=== PATIENT | female | born 1930 | race Hispanic/Latino ===

== ENCOUNTER → 2017-09-24 | Outpatient (CLI) | payer OTHER ==
[~2017-09-24] MED LIST: AEC81 PO; ALBU2.5V2 IH; APIX5TAB PO; ATOR10TA69 PO; FENT50PAT TD; GLIP1TAB6 PO; INSLAN SQ; IPRNEB IH; METO-408 PO; METO25TA6 PO; ONDA8TAB5 PO; PANT20TA PO; PRAV20TA4 PO; PRED20TA3 PO; RIVA15TA PO; SERT100T PO; SITA100T12 PO; TYL3 PO; VALS1TAB75 PO; VALS40TA10 PO
== END | disposition home or self-care (01) ==
LOC: SHCH 13:07
PROVIDERS: ATTEND Internal Medicine Cardiovascular Disease
DX: I73.9 Peripheral vascular disease, unspecified (principal)
CPT/HCPCS: 93925

== ENCOUNTER 2017-09-30 10:20 | Inpatient (IN) | payer OTHER ==
[~2017-09-30] VITALS: Ht 142.2 cm; Wt 55.3 kg
[~2017-09-30 10:20] MED LIST changes: -FENT50PAT TD; -METO-408 PO; -ONDA8TAB5 PO; -PANT20TA PO; -PRAV20TA4 PO; -PRED20TA3 PO; -RIVA15TA PO; -SERT100T PO; -TYL3 PO; -VALS40TA10 PO
[2017-09-30] MEDS ORDERED: FENTANYL 50 MCG/HR PATCH TD ONE (11:20)
[2017-09-30] MEDS ORDERED: ACETAMINOPHEN-CODEINE 300/30MG TAB ONE (11:20)
[2017-09-30 11:35] LABS: BASOPHILS % (AUTO) 0.5 % (0.0-5.0); EOSINOPHILS % (AUTO) 1.2 % (0.0-8.0); HEMATOCRIT 24.6 % (36-48); LYMPHOCYTES % (AUTO) 19.2 % (21.0-51.0); MEAN CORPUSCULAR HEMOGLOBIN 23.6 pg (27.0-33.0); MEAN CORPUSCULAR HGB CONC 32.7 g/dL (32.0-36.0); MEAN CORPUSCULAR VOLUME 72.1 fL (79-99); MONOCYTES % (AUTO) 13.4 % (3.0-13.0); NEUTROPHILS % (AUTO) 65.7 % (40.0-77.0); PLATELET COUNT (AUTO) 247 K/uL (130-400); RED BLOOD CELL COUNT(AUTO) 3.42 MIL/uL (4.00-5.50); RED CELL DISTRIBUTION WIDTH 24.3 % (11.0-15.5); WHITE BLOOD COUNT (AUTO) 5.5 K/uL (4.8-10.8)
[2017-09-30 11:44] LABS: CREATININE 0.8 mg/dL (0.5-1.5); POTASSIUM 4.6 mmol/L (3.5-5.1)
[2017-09-30 11:49] LABS: ALBUMIN 3.2 g/dL (3.5-5.0); BILIRUBIN,DIRECT 0.1 mg/dL (0.0-0.3); BILIRUBIN,TOTAL 0.2 mg/dL (0.2-1.0); TOTAL PROTEIN, SERUM 5.7 g/dL (6.0-8.3)
[2017-09-30] MEDS: FENTANYL 50 MCG/HR PATCH TD SCH (12:15)
[2017-09-30 12:31] VITALS: BP 104/50
[2017-09-30] MEDS ORDERED: IPRATROPIUM/ALBUTEROL SULFATE 3 ML SOLUTION IH ONE (13:45)
[2017-09-30] MEDS ORDERED: IPRATROPIUM/ALBUTEROL SULFATE 3 ML SOLUTION IH SCH (14:00)
[2017-09-30] MEDS ORDERED: GLIPIZIDE 5 MG TABLET PO SCH (17:14)
[2017-09-30] MEDS: METFORMIN HCL 500 MG TABLET PO SCH (17:20)
[2017-09-30] MEDS: IPRATROPIUM/ALBUTEROL SULFATE 3 ML SOLUTION IH SCH ×2 (18:00→21:27)
[2017-09-30] MEDS ORDERED: ALBUTEROL SULFATE 0.083% 2.5 MG/3 ML INH IH SCH (18:00)
[2017-09-30 21:25] VITALS: BP 123/65
[2017-09-30] MEDS: 1/2 NORMAL SALINE 1,000 ML IV SCH (23:00)
[2017-09-30 23:40] VITALS: BP 93/60
[2017-10-01] MEDS ORDERED: FENT50PAT TD (01:01)
[2017-10-01] MEDS ORDERED: METO-408 PO (01:01)
[2017-10-01] MEDS ORDERED: SERT100T PO (01:01)
[2017-10-01] MEDS ORDERED: ONDA8TAB5 PO (01:01)
[2017-10-01] MEDS ORDERED: PANT20TA PO (01:01)
[2017-10-01] MEDS ORDERED: RIVA15TA PO (01:01)
[2017-10-01] MEDS ORDERED: VALS40TA10 PO (01:01)
[2017-10-01] MEDS ORDERED: PRED20TA3 PO (01:01)
[2017-10-01] MEDS ORDERED: TYL3 PO (01:01)
[2017-10-01] MEDS ORDERED: PRAV20TA4 PO (01:01)
[2017-10-01 04:18] VITALS: BP 107/65
[2017-10-01 04:37] LABS: HEMATOCRIT 25.4 % (36-48); MEAN CORPUSCULAR HGB CONC 31.5 g/dL (32.0-36.0); MEAN CORPUSCULAR VOLUME 73.3 fL (79-99); NUCLEATED RED BLOOD CELLS 0.1 % (0.0-0.19); PLATELET COUNT (AUTO) 284 K/uL (130-400); RED BLOOD CELL COUNT(AUTO) 3.47 MIL/uL (4.00-5.50); RED CELL DISTRIBUTION WIDTH 24.8 % (11.0-15.5)
[2017-10-01 04:54] LABS: CREATININE 0.9 mg/dL (0.5-1.5); POTASSIUM 5.4 mmol/L (3.5-5.1)
[2017-10-01] MEDS: 1/2 NORMAL SALINE 1,000 ML IV SCH ×2 (06:22→19:00)
[2017-10-01 07:00] VITALS: BP 112/62
[2017-10-01] MEDS: IPRATROPIUM/ALBUTEROL SULFATE 3 ML SOLUTION IH SCH ×2 (07:17→22:08)
[2017-10-01] MEDS ORDERED: METFORMIN HCL 500 MG TABLET PO SCH ×2 (07:30→08:00)
[2017-10-01] MEDS ORDERED: PHARMACY COMMUNICATION MISC SCH (07:30)
[2017-10-01] MEDS ORDERED: GLUCAGON 1MG KIT 1 MG ML IM PRN (08:15)
[2017-10-01] MEDS ORDERED: DEXTROSE 50%-WATER 50 ML DISP.SYRIN IV PRN (08:15)
[2017-10-01] MEDS: VALSARTAN 40 MG PO SCH (09:00)
[2017-10-01] MEDS: METOPROLOL SUCCINATE 25 MG PO SCH (09:00)
[2017-10-01] MEDS: RIVAROXABAN 15 MG TABLET PO SCH (09:47)
[2017-10-01] MEDS: SERTRALINE HCL 50 MG TABLET PO SCH (09:47)
[2017-10-01] MEDS: PANTOPRAZOLE SODIUM 40 MG TABLET.DR PO SCH (09:47)
[2017-10-01] MEDS: ONDANSETRON 4 MG TABLET PO SCH (09:48)
[2017-10-01] MEDS: PREDNISONE 20 MG TABLET PO SCH (09:48)
[2017-10-01] MEDS: GLIPIZIDE 5 MG TABLET PO SCH ×2 (09:48→18:57)
[2017-10-01 11:00] VITALS: BP 107/55
[2017-10-01] MEDS ORDERED: INSULIN LISPRO 100 UNIT/ML 3ML SQ ONE (13:27)
[2017-10-01] MEDS: HUMALOG PO SS1/2 SQ SCH ×2 (13:37→21:17)
[2017-10-01 17:27] VITALS: BP 114/62
[2017-10-01] MEDS: METFORMIN HCL 500 MG TABLET PO SCH (18:57)
[2017-10-01 19:00] VITALS: BP 102/76
[2017-10-01] MEDS: ATORVASTATIN CALCIUM 10 MG TABLET PO SCH (21:07)
[2017-10-01 23:00] VITALS: BP 116/44
[2017-10-02 03:00] VITALS: BP 109/64
[2017-10-02] MEDS: HUMALOG PO SS1/2 SQ SCH ×4 (06:47→22:50)
[2017-10-02 07:00] VITALS: BP 131/60
[2017-10-02] MEDS ORDERED: IOPAMIDOL-370 100 ML VIAL IV ONE (08:24)
[2017-10-02] MEDS ORDERED: ISOVUE-370 50ML VIAL IV ONE (08:25)
[2017-10-02] MEDS: METOPROLOL SUCCINATE 25 MG PO SCH (09:00)
[2017-10-02] MEDS: VALSARTAN 40 MG PO SCH (09:00)
[2017-10-02] MEDS: IPRATROPIUM/ALBUTEROL SULFATE 3 ML SOLUTION IH SCH ×2 (09:08→18:50)
[2017-10-02 11:00] VITALS: BP 93/61
[2017-10-02] MEDS: ONDANSETRON 4 MG TABLET PO SCH (12:13)
[2017-10-02] MEDS: GLIPIZIDE 5 MG TABLET PO SCH ×2 (12:13→17:06)
[2017-10-02] MEDS: SERTRALINE HCL 50 MG TABLET PO SCH (12:13)
[2017-10-02] MEDS: RIVAROXABAN 15 MG TABLET PO SCH (12:13)
[2017-10-02] MEDS: PREDNISONE 20 MG TABLET PO SCH (12:14)
[2017-10-02] MEDS: PANTOPRAZOLE SODIUM 40 MG TABLET.DR PO SCH (12:14)
[2017-10-02] MEDS: ACETAMINOPHEN-CODEINE 300/30MG TAB PO PRN (12:15)
[2017-10-02] MEDS: 1/2 NORMAL SALINE 1,000 ML IV SCH (12:35)
[2017-10-02 16:00] VITALS: BP 100/58
[2017-10-02 19:00] VITALS: BP 100/55
[2017-10-02] MEDS: ATORVASTATIN CALCIUM 10 MG TABLET PO SCH (22:42)
[2017-10-02 23:00] VITALS: BP 107/67
[2017-10-03 03:00] VITALS: BP 129/73
[2017-10-03 04:37] LABS: INR 1.02 (0.85-1.15); PROTHROMBIN TIME 10.7 SEC (9.6-11.6)
[2017-10-03] MEDS: HUMALOG PO SS1/2 SQ SCH ×4 (06:32→21:19)
[2017-10-03] MEDS: IPRATROPIUM/ALBUTEROL SULFATE 3 ML SOLUTION IH SCH ×2 (06:37→19:29)
[2017-10-03 07:00] VITALS: BP 114/52
[2017-10-03] MEDS: GLIPIZIDE 5 MG TABLET PO SCH ×2 (08:00→16:46)
[2017-10-03] MEDS ORDERED: METFORMIN HCL 500 MG TAB.SR.24H PO SCH (08:00)
[2017-10-03] MEDS: METOPROLOL SUCCINATE 25 MG PO SCH (09:00)
[2017-10-03] MEDS: RIVAROXABAN 15 MG TABLET PO SCH (09:00)
[2017-10-03] MEDS: VALSARTAN 40 MG PO SCH (09:00)
[2017-10-03 11:00] VITALS: BP 106/59
[2017-10-03] MEDS: PREDNISONE 20 MG TABLET PO SCH (11:53)
[2017-10-03] MEDS: ONDANSETRON 4 MG TABLET PO SCH (11:53)
[2017-10-03] MEDS: SERTRALINE HCL 50 MG TABLET PO SCH (11:53)
[2017-10-03] MEDS: PANTOPRAZOLE SODIUM 40 MG TABLET.DR PO SCH (11:54)
[2017-10-03] MEDS: FENTANYL 50 MCG/HR PATCH TD SCH (12:31)
[2017-10-03 16:00] VITALS: BP 125/69
[2017-10-03] MEDS: METFORMIN HCL 500 MG TABLET PO SCH (16:47)
[2017-10-03] MEDS: ACETAMINOPHEN-CODEINE 300/30MG TAB PO PRN ×2 (16:51→23:50)
[2017-10-03] MEDS ORDERED: PHARMACY COMMUNICATION MISC SCH (19:00)
[2017-10-03 20:00] VITALS: BP 97/54
[2017-10-03] MEDS: ATORVASTATIN CALCIUM 10 MG TABLET PO SCH (21:15)
[2017-10-03] MEDS ORDERED: SODIUM CHLORIDE 0.9% 250 ML IV ONE (22:12)
[2017-10-03 22:33] LABS: HEMATOCRIT 25.2 % (36-48)
[2017-10-03] MEDS: 1/2 NORMAL SALINE 1,000 ML IV SCH (23:13)
[2017-10-03 23:25] VITALS: BP 96/44
[2017-10-04 03:41] VITALS: BP 154/76
[2017-10-04 04:21] LABS: HEMATOCRIT 26.9 % (36-48)
[2017-10-04] MEDS: ALBUTEROL SULFATE 0.083% 2.5 MG/3 ML INH IH PRN (06:24)
[2017-10-04] MEDS: 1/2 NORMAL SALINE 1,000 ML IV SCH ×2 (06:33→20:51)
[2017-10-04] MEDS: HUMALOG PO SS1/2 SQ SCH ×4 (06:34→20:58)
[2017-10-04] MEDS: ACETAMINOPHEN-CODEINE 300/30MG TAB PO PRN ×2 (06:40→20:51)
[2017-10-04 07:00] VITALS: BP 127/80
[2017-10-04] MEDS: ONDANSETRON 4 MG TABLET PO SCH (09:00)
[2017-10-04] MEDS ORDERED: RIVAROXABAN 15 MG TABLET PO SCH (09:00)
[2017-10-04] MEDS: IPRATROPIUM/ALBUTEROL SULFATE 3 ML SOLUTION IH SCH ×2 (09:00→17:26)
[2017-10-04] MEDS: PREDNISONE 20 MG TABLET PO SCH (09:15)
[2017-10-04] MEDS: PANTOPRAZOLE SODIUM 40 MG TABLET.DR PO SCH (09:15)
[2017-10-04] MEDS: GLIPIZIDE 5 MG TABLET PO SCH ×2 (09:17→16:34)
[2017-10-04] MEDS: SERTRALINE HCL 50 MG TABLET PO SCH (09:17)
[2017-10-04] MEDS: VALSARTAN 40 MG PO SCH (09:21)
[2017-10-04] MEDS: METOPROLOL SUCCINATE 25 MG PO SCH (09:21)
[2017-10-04 11:00] VITALS: BP 125/57
[2017-10-04 16:00] VITALS: BP 116/78
[2017-10-04 19:40] VITALS: BP 119/71
[2017-10-04] MEDS: ATORVASTATIN CALCIUM 10 MG TABLET PO SCH (20:51)
[2017-10-04 23:10] VITALS: BP_SYST 106; BP_SYST 140; BP_DIAS 59; BP_DIAS 74
[2017-10-05 04:03] VITALS: BP 114/61
[2017-10-05] MEDS: HUMALOG PO SS1/2 SQ SCH ×4 (06:19→20:30)
[2017-10-05] MEDS: IPRATROPIUM/ALBUTEROL SULFATE 3 ML SOLUTION IH SCH ×2 (06:43→19:43)
[2017-10-05 07:00] VITALS: BP 135/66
[2017-10-05] MEDS: ACETAMINOPHEN-CODEINE 300/30MG TAB PO PRN ×2 (07:51→18:35)
[2017-10-05] MEDS: PREDNISONE 20 MG TABLET PO SCH (09:31)
[2017-10-05] MEDS: SERTRALINE HCL 50 MG TABLET PO SCH (09:31)
[2017-10-05] MEDS: PANTOPRAZOLE SODIUM 40 MG TABLET.DR PO SCH (09:31)
[2017-10-05] MEDS: ONDANSETRON 4 MG TABLET PO SCH (09:31)
[2017-10-05] MEDS: GLIPIZIDE 5 MG TABLET PO SCH ×2 (09:31→16:42)
[2017-10-05] MEDS: VALSARTAN 40 MG PO SCH (09:59)
[2017-10-05] MEDS: METOPROLOL SUCCINATE 25 MG PO SCH (09:59)
[2017-10-05 11:13] VITALS: BP 125/85
[2017-10-05 17:02] VITALS: BP 107/58
[2017-10-05 19:19] VITALS: BP 122/76
[2017-10-05] MEDS: ATORVASTATIN CALCIUM 10 MG TABLET PO SCH (20:23)
[2017-10-05] MEDS: 1/2 NORMAL SALINE 1,000 ML IV SCH (20:30)
[2017-10-05 23:18] VITALS: BP 123/65
[2017-10-06 03:41] VITALS: BP 119/85
[2017-10-06] MEDS: HUMALOG PO SS1/2 SQ SCH ×4 (06:28→20:44)
[2017-10-06] MEDS: IPRATROPIUM/ALBUTEROL SULFATE 3 ML SOLUTION IH SCH ×2 (07:30→19:08)
[2017-10-06] MEDS ORDERED: SODIUM CHLORIDE 0.9% 500ML 500 ML IV SCH (08:26)
[2017-10-06] MEDS: ONDANSETRON 4 MG TABLET PO SCH (08:46)
[2017-10-06] MEDS: PANTOPRAZOLE SODIUM 40 MG TABLET.DR PO SCH (08:46)
[2017-10-06] MEDS: PREDNISONE 20 MG TABLET PO SCH (08:46)
[2017-10-06] MEDS: GLIPIZIDE 5 MG TABLET PO SCH ×2 (08:46→16:31)
[2017-10-06 08:47] LABS: CREATININE 0.7 mg/dL (0.5-1.5)
[2017-10-06] MEDS: SERTRALINE HCL 50 MG TABLET PO SCH (08:47)
[2017-10-06] MEDS: ACETAMINOPHEN-CODEINE 300/30MG TAB PO PRN ×2 (08:47→21:44)
[2017-10-06] MEDS: METOPROLOL SUCCINATE 25 MG PO SCH (08:47)
[2017-10-06] MEDS: VALSARTAN 40 MG PO SCH (08:47)
[2017-10-06 08:48] LABS: INR 1.02 (0.85-1.15); PARTIAL THROMBOPLASTIN TIME 24.9 SEC (26.3-35.5); PROTHROMBIN TIME 10.7 SEC (9.6-11.6)
[2017-10-06 08:54] VITALS: BP 149/73
[2017-10-06 11:00] VITALS: BP 100/59
[2017-10-06] MEDS: FENTANYL 50 MCG/HR PATCH TD SCH (11:55)
[2017-10-06 16:00] VITALS: BP 95/56
[2017-10-06] MEDS: 1/2 NORMAL SALINE 1,000 ML IV SCH (18:31)
[2017-10-06 20:00] VITALS: BP 115/68
[2017-10-06] MEDS: ATORVASTATIN CALCIUM 10 MG TABLET PO SCH (20:45)
[2017-10-07] VITALS (14 sets, daily range): BP systolic 78–128; BP diastolic 41–75
[2017-10-07] MEDS: HUMALOG PO SS1/2 SQ SCH ×4 (06:09→21:00)
[2017-10-07] MEDS ORDERED: HEPARIN SODIUM 1000UNIT/ML 10ML VIAL ONE (07:25)
[2017-10-07] MEDS ORDERED: NITROGLYCERIN 5 MG/ML 10 ML VIAL IV ONE (07:25)
[2017-10-07] MEDS ORDERED: LIDOCAINE HCL 2% 20ML ONE (07:26)
[2017-10-07] MEDS ORDERED: ISOVUE-300 100 ML VIAL IV ONE (07:26)
[2017-10-07] MEDS ORDERED: BIVALIRUDIN 250 MG/VIAL IV ONE (07:49)
[2017-10-07] MEDS ORDERED: MIDAZOLAM HCL 1 MG/ML 2ML VIAL ONE (08:01)
[2017-10-07] MEDS ORDERED: SODIUM CHLORIDE 0.9% 1000ML 1,000 ML IV SCH (08:25)
[2017-10-07] MEDS: METOPROLOL SUCCINATE 25 MG PO SCH (09:00)
[2017-10-07] MEDS: ONDANSETRON 4 MG TABLET PO SCH (09:00)
[2017-10-07] MEDS: SERTRALINE HCL 50 MG TABLET PO SCH (09:00)
[2017-10-07] MEDS: VALSARTAN 40 MG PO SCH (09:00)
[2017-10-07] MEDS: ACETAMINOPHEN-CODEINE 300/30MG TAB PO PRN ×2 (10:23→21:16)
[2017-10-07] MEDS ORDERED: SODIUM CHLORIDE 0.9% 250 ML IV SCH (13:00)
[2017-10-07 13:22] LABS: HEMATOCRIT 25.9 % (36-48); MEAN CORPUSCULAR HEMOGLOBIN 23.9 pg (27.0-33.0); MEAN CORPUSCULAR HGB CONC 31.2 g/dL (32.0-36.0); MEAN CORPUSCULAR VOLUME 76.7 fL (79-99); PLATELET COUNT (AUTO) 217 K/uL (130-400); RED BLOOD CELL COUNT(AUTO) 3.38 MIL/uL (4.00-5.50); RED CELL DISTRIBUTION WIDTH 23.2 % (11.0-15.5); WHITE BLOOD COUNT (AUTO) 8.2 K/uL (4.8-10.8)
[2017-10-07] MEDS: 1/2 NORMAL SALINE 1,000 ML IV SCH (15:00)
[2017-10-07] MEDS: GLIPIZIDE 5 MG TABLET PO SCH ×2 (15:13→17:48)
[2017-10-07] MEDS: IPRATROPIUM/ALBUTEROL SULFATE 3 ML SOLUTION IH SCH ×2 (15:13→21:00)
[2017-10-07] MEDS: PANTOPRAZOLE SODIUM 40 MG TABLET.DR PO SCH (15:14)
[2017-10-07] MEDS: PREDNISONE 20 MG TABLET PO SCH (17:48)
[2017-10-07 18:03] LABS: HEMATOCRIT 26.3 % (36-48); MEAN CORPUSCULAR HEMOGLOBIN 24.2 pg (27.0-33.0); MEAN CORPUSCULAR HGB CONC 31.4 g/dL (32.0-36.0); PLATELET COUNT (AUTO) 238 K/uL (130-400); RED BLOOD CELL COUNT(AUTO) 3.42 MIL/uL (4.00-5.50); RED CELL DISTRIBUTION WIDTH 23.7 % (11.0-15.5); WHITE BLOOD COUNT (AUTO) 6.5 K/uL (4.8-10.8)
[2017-10-07] MEDS: ALBUTEROL SULFATE 0.083% 2.5 MG/3 ML INH IH PRN (19:43)
[2017-10-07] MEDS: ATORVASTATIN CALCIUM 10 MG TABLET PO SCH (21:09)
[2017-10-08 04:15] VITALS: BP 127/71
[2017-10-08 05:30] LABS: MEAN CORPUSCULAR HEMOGLOBIN 23.8 pg (27.0-33.0); MEAN CORPUSCULAR HGB CONC 30.8 g/dL (32.0-36.0); MEAN CORPUSCULAR VOLUME 77.4 fL (79-99); PLATELET COUNT (AUTO) 214 K/uL (130-400); RED BLOOD CELL COUNT(AUTO) 3.36 MIL/uL (4.00-5.50); RED CELL DISTRIBUTION WIDTH 23.3 % (11.0-15.5); WHITE BLOOD COUNT (AUTO) 7.2 K/uL (4.8-10.8)
[2017-10-08 06:00] LABS: ALBUMIN 2.8 g/dL (3.5-5.0); BILIRUBIN,TOTAL 0.2 mg/dL (0.2-1.0); CREATININE 0.7 mg/dL (0.5-1.5); POTASSIUM 4.4 mmol/L (3.5-5.1); TOTAL PROTEIN, SERUM 5.1 g/dL (6.0-8.3)
[2017-10-08 07:30] VITALS: BP 130/76
[2017-10-08] MEDS: HUMALOG PO SS1/2 SQ SCH ×3 (07:30→17:55)
[2017-10-08] MEDS: SERTRALINE HCL 50 MG TABLET PO SCH (08:40)
[2017-10-08] MEDS: PANTOPRAZOLE SODIUM 40 MG TABLET.DR PO SCH (08:40)
[2017-10-08] MEDS: ONDANSETRON 4 MG TABLET PO SCH (08:40)
[2017-10-08] MEDS: PREDNISONE 20 MG TABLET PO SCH (08:40)
[2017-10-08] MEDS: GLIPIZIDE 5 MG TABLET PO SCH ×2 (08:41→17:56)
[2017-10-08] MEDS: METOPROLOL SUCCINATE 25 MG PO SCH (08:43)
[2017-10-08] MEDS: VALSARTAN 40 MG PO SCH (08:43)
[2017-10-08] MEDS: ACETAMINOPHEN-CODEINE 300/30MG TAB PO PRN ×2 (08:44→18:53)
[2017-10-08 11:00] VITALS: BP 127/67
[2017-10-08] MEDS: 1/2 NORMAL SALINE 1,000 ML IV SCH (13:16)
[2017-10-08 16:00] VITALS: BP 96/53
== END 2017-10-08 19:00 | disposition home or self-care (01) | DRG 638 ==
LOC: EDH 10:20 → EDHIP 10:21 → OBSVTOIN 10:21 → 3DH 19:26
PROVIDERS: ADMIT Internal Medicine; ATTEND Internal Medicine
PROC: 30233N1 Transfusion of Nonautologous Red Blood Cells into Peripheral Vein, Percutaneous Approach (ICD-10-PCS; principal; 2017-10-03)
PROC: B41F1ZZ Fluoroscopy of Right Lower Extremity Arteries using Low Osmolar Contrast (ICD-10-PCS; 2017-10-07)
DX: E11.69 Type 2 diabetes mellitus with other specified complication (principal); L97.419 Non-pressure chronic ulcer of right heel and midfoot with unspecified severity; M86.9 Osteomyelitis, unspecified; E11.22 Type 2 diabetes mellitus with diabetic chronic kidney disease; E11.621 Type 2 diabetes mellitus with foot ulcer; E11.52 Type 2 diabetes mellitus with diabetic peripheral angiopathy with gangrene; I70.92 Chronic total occlusion of artery of the extremities; I48.91 Unspecified atrial fibrillation; E11.65 Type 2 diabetes mellitus with hyperglycemia; D64.9 Anemia, unspecified; E78.5 Hyperlipidemia, unspecified; G89.4 Chronic pain syndrome; I12.9 Hypertensive chronic kidney disease with stage 1 through stage 4 chronic kidney disease, or unspecified chronic kidney disease; I25.10 Atherosclerotic heart disease of native coronary artery without angina pectoris; I70.201 Unspecified atherosclerosis of native arteries of extremities, right leg; K21.9 Gastro-esophageal reflux disease without esophagitis; J44.9 Chronic obstructive pulmonary disease, unspecified; L03.031 Cellulitis of right toe; L97.519 Non-pressure chronic ulcer of other part of right foot with unspecified severity; N18.2 Chronic kidney disease, stage 2 (mild); Z79.01 Long term (current) use of anticoagulants; Z86.718 Personal history of other venous thrombosis and embolism; Z98.1 Arthrodesis status; Z88.8 Allergy status to other drugs, medicaments and biological substances
CPT/HCPCS: 36247; 36415; 36430; 73620; 75635; 75716; 76882; 80048; 80053; 80076; 82947; 82948; 85014; 85018; 85025; 85027; 85610; 85730; 86850; 86900; 86901; 86922; 93925; 94640; 94664; 99152; 99153; C1769; C1893; C1894; J0583; J1644; J1815; J2250; J3490; J7030; P9016; Q0162; Q9967

== ENCOUNTER 2020-12-24 18:12 | Inpatient (IN) | payer OTHER ==
[~2020-12-24] VITALS: Ht 149.9 cm; Wt 53.8 kg
[~2020-12-24 18:12] MED LIST changes: -AEC81 PO; -ALBU2.5V2 IH; -APIX5TAB PO; -ATOR10TA69 PO; +CILO100T PO; +CLOP75TA32 PO; +GABA300S PO; -INSLAN SQ; -IPRNEB IH; -METO25TA6 PO; +NIFE30TA98 PO; +PRAV40TA3 PO; +RIVA15TA PO; +SERT100T PO; -SITA100T12 PO; -VALS1TAB75 PO; +VALS40TA11 PO
[2020-12-24 19:00] LABS: BASOPHILS % (AUTO) 0.1 % (0.0-5.0); EOSINOPHILS % (AUTO) 0.3 % (0.0-8.0); HEMATOCRIT 24.9 % (36-48); LYMPHOCYTES % (AUTO) 8.6 % (21.0-51.0); MEAN CORPUSCULAR HEMOGLOBIN 27.6 pg (27.0-33.0); MEAN CORPUSCULAR HGB CONC 32.5 g/dL (32.0-36.0); MEAN CORPUSCULAR VOLUME 84.7 fL (79-99); MONOCYTES % (AUTO) 4.1 % (3.0-13.0); NEUTROPHILS % (AUTO) 86.1 % (40.0-77.0); NUCLEATED RED BLOOD CELLS 0.2 % (0.0-0.19); PLATELET COUNT (AUTO) 275 K/uL (130-400); RED BLOOD CELL COUNT(AUTO) 2.94 MIL/uL (4.00-5.50); RED CELL DISTRIBUTION WIDTH 19.9 % (11.0-15.5); WHITE BLOOD COUNT (AUTO) 10.6 K/uL (4.8-10.8)
[2020-12-24 19:16] LABS: APPEARANCE,URINE Cloudy (CLEAR); BILIRUBIN,URINE Negative (NEGATIVE); COLOR,URINE Yellow (YELLOW); GLUCOSE, URINE (UA) Negative (NEGATIVE); KETONES,URINE Negative (NEGATIVE); LEUKOCYTE ESTERASE ,URINE Moderate (NEGATIVE); NITRATE,URINE Negative (NEGATIVE); OCCULT BLOOD,URINE Moderate (NEGATIVE); PH,URINE 5.5 (5.0-8.0); PROTEIN,URINE POS 1+ mg/dL (NEGATIVE); UROBILINOGEN,URINE 0.2 mg/dL (0.2-1.0)
[2020-12-24 19:26] LABS: INR 1.32 (0.85-1.15)
[2020-12-24 19:28] LABS: PARTIAL THROMBOPLASTIN TIME 38.9 SEC (26.3-35.5)
[2020-12-24 19:51] LABS: BACTERIA,URINE Few /HPF (None Seen); MUCUS,URINE Few LPF (None Seen); SQUAMOUS EPITHELIAL CELL,UR Few /HPF (0-2)
[2020-12-24 19:52] LABS: AMORPHOUS SEDIMENT,UR Moderate /LPF (None Seen)
[2020-12-24 20:00] LABS: BILIRUBIN,TOTAL 0.1 mg/dL (0.2-1.0); CREATININE 1.3 mg/dL (0.5-1.5); POTASSIUM 5.5 mmol/L (3.5-5.1)
[2020-12-24 20:01] LABS: ALBUMIN 2.1 g/dL (3.5-5.0); TOTAL PROTEIN, SERUM 4.7 g/dL (6.0-8.3)
[2020-12-24] MEDS ORDERED: CEFTRIAXONE 1G VIAL ONE (21:09)
[2020-12-25] VITALS: BP 123/61
[2020-12-25 04:34] VITALS: BP 133/83
[2020-12-25] MEDS ORDERED: 0.9%NACL 1000ML 1,000 ML IV SCH (05:45)
[2020-12-25 06:33] LABS: HEMATOCRIT 24.3 % (36-48); MEAN CORPUSCULAR HEMOGLOBIN 27.9 pg (27.0-33.0); MEAN CORPUSCULAR HGB CONC 32.9 g/dL (32.0-36.0); MEAN CORPUSCULAR VOLUME 84.7 fL (79-99); RED BLOOD CELL COUNT(AUTO) 2.87 MIL/uL (4.00-5.50); RED CELL DISTRIBUTION WIDTH 19.9 % (11.0-15.5)
[2020-12-25 06:48] LABS: ALANINE AMINOTRANSFERASE 9 U/L (12-78); ALBUMIN 2.1 g/dL (3.5-5.0); ASPARTATE AMINOTRANSFERASE 12 U/L (10-37); BILIRUBIN,DIRECT < 0.1 mg/dL (0.0-0.3); BILIRUBIN,TOTAL 0.1 mg/dL (0.2-1.0); CARBON DIOXIDE 18 mmol/L (21-32); CHLORIDE 99 mmol/L (101-111); CREATININE 1.2 mg/dL (0.5-1.5); GLOMERULAR FILTR. RATE CALC 45 mL/min (>60); GLUCOSE,RANDOM 176 mg/dL (70-105); POTASSIUM 4.9 mmol/L (3.5-5.1); SODIUM SERUM 132 mmol/L (136-145); TOTAL PROTEIN, SERUM 4.7 g/dL (6.0-8.3); UREA NITROGEN, BLOOD 58 mg/dL (7-18)
[2020-12-25] MEDS ORDERED: PANTOPRAZOLE 40 MG/VIAL ONE (06:58)
[2020-12-25] MEDS: PANTOPRAZOLE 40 MG/VIAL IVP SCH (07:01)
[2020-12-25] MEDS ORDERED: CLOPIDOGREL 75MG TAB PO SCH (09:00)
[2020-12-25] MEDS ORDERED: SERTRALINE HCL 50 MG TABLET PO SCH (09:00)
[2020-12-25] MEDS: DIGOXIN 125 MCG TABLET PO SCH ×2 (09:15→14:11)
[2020-12-25] MEDS: GABAPENTIN 300 MG CAPSULE PO SCH ×3 (09:15→20:25)
[2020-12-25 09:44] VITALS: BP 129/60
[2020-12-25 13:49] VITALS: BP 105/64
[2020-12-25] MEDS ORDERED: DIGOXIN 125 MCG TABLET PO SCH (14:00)
[2020-12-25] MEDS ORDERED: HYDROCODONE/ACETAMINOPHEN 5/325 MG TAB PO PRN (15:30)
[2020-12-25 17:07] VITALS: BP 110/61
[2020-12-25 20:00] VITALS: BP 105/66
[2020-12-25] MEDS: SIMVASTATIN 20 MG TABLET PO SCH (20:24)
[2020-12-25] MEDS: CEFTRIAXONE 1G VIAL IVP SCH (20:24)
[2020-12-25] MEDS: SERTRALINE HCL 50 MG TABLET PO SCH (20:24)
[2020-12-26] VITALS (17 sets, daily range): BP systolic 93–152; BP diastolic 53–89
[2020-12-26 05:48] LABS: POTASSIUM 4.2 mmol/L (3.5-5.1)
[2020-12-26 05:49] LABS: MEAN CORPUSCULAR HEMOGLOBIN 27.3 pg (27.0-33.0); MEAN CORPUSCULAR VOLUME 85.1 fL (79-99); RED BLOOD CELL COUNT(AUTO) 2.42 MIL/uL (4.00-5.50); RED CELL DISTRIBUTION WIDTH 19.4 % (11.0-15.5); WHITE BLOOD COUNT (AUTO) 6.7 K/uL (4.8-10.8)
[2020-12-26 06:02] LABS: HEMATOCRIT 20.6 % (36-48)
[2020-12-26] MEDS ORDERED: 0.9%NACL 100ML 100 ML IV ONE (07:29)
[2020-12-26] MEDS: GABAPENTIN 300 MG CAPSULE PO SCH ×3 (09:00→20:49)
[2020-12-26] MEDS: PANTOPRAZOLE 40 MG/VIAL IVP SCH (09:49)
[2020-12-26] MEDS ORDERED: PROPOFOL 10 MG/ML 20ML VIAL IV ONE (10:24)
[2020-12-26] MEDS ORDERED: ACETAMINOPHEN 325 MG TAB PO PRN (12:15)
[2020-12-26] MEDS: DIGOXIN 125 MCG TABLET PO SCH (15:07)
[2020-12-26] MEDS: CEFTRIAXONE 1G VIAL IVP SCH (20:49)
[2020-12-26] MEDS: SIMVASTATIN 20 MG TABLET PO SCH (20:50)
[2020-12-26] MEDS: SERTRALINE HCL 50 MG TABLET PO SCH (20:50)
[2020-12-27 00:34] VITALS: BP 97/56
[2020-12-27 04:00] VITALS: BP 115/68
[2020-12-27 05:54] LABS: BASOPHILS % (AUTO) 0.2 % (0.0-5.0); EOSINOPHILS % (AUTO) 5.3 % (0.0-8.0); HEMATOCRIT 24.4 % (36-48); LYMPHOCYTES % (AUTO) 12.9 % (21.0-51.0); MEAN CORPUSCULAR HEMOGLOBIN 28.4 pg (27.0-33.0); MEAN CORPUSCULAR HGB CONC 33.2 g/dL (32.0-36.0); MEAN CORPUSCULAR VOLUME 85.6 fL (79-99); MONOCYTES % (AUTO) 8.3 % (3.0-13.0); NEUTROPHILS % (AUTO) 72.2 % (40.0-77.0); PLATELET COUNT (AUTO) 120 K/uL (130-400); RED BLOOD CELL COUNT(AUTO) 2.85 MIL/uL (4.00-5.50); RED CELL DISTRIBUTION WIDTH 17.6 % (11.0-15.5); WHITE BLOOD COUNT (AUTO) 5.5 K/uL (4.8-10.8)
[2020-12-27 06:14] LABS: ALBUMIN 1.8 g/dL (3.5-5.0); BILIRUBIN,TOTAL 0.2 mg/dL (0.2-1.0); CREATININE 0.7 mg/dL (0.5-1.5); POTASSIUM 3.6 mmol/L (3.5-5.1); TOTAL PROTEIN, SERUM 4.1 g/dL (6.0-8.3)
[2020-12-27 07:55] VITALS: BP 100/70
[2020-12-27] MEDS: GABAPENTIN 300 MG CAPSULE PO SCH ×3 (11:01→20:51)
[2020-12-27] MEDS: PANTOPRAZOLE 40 MG/VIAL IVP SCH (11:01)
[2020-12-27] MEDS: DIGOXIN 125 MCG TABLET PO SCH (11:02)
[2020-12-27 11:28] VITALS: BP 109/67
[2020-12-27] MEDS ORDERED: ZINC OXIDE OINT 114 GM TUBE TP SCH (13:00)
[2020-12-27] MEDS: DOCUSATE SODIUM 100 MG CAP PO SCH (13:51)
[2020-12-27] MEDS: NYSTATIN 30 GM CREAM.GM. TP SCH ×2 (16:01→20:52)
[2020-12-27 16:29] VITALS: BP 134/57
[2020-12-27 20:50] VITALS: BP 112/52
[2020-12-27] MEDS: SIMVASTATIN 20 MG TABLET PO SCH (20:50)
[2020-12-27] MEDS: CEFTRIAXONE 1G VIAL IVP SCH (20:50)
[2020-12-27] MEDS: SERTRALINE HCL 50 MG TABLET PO SCH (20:50)
[2020-12-27] MEDS: ZINC OXIDE OINT 56.7 GM TP SCH (20:51)
[2020-12-28 00:17] VITALS: BP 106/63
[2020-12-28 05:20] LABS: BASOPHILS % (AUTO) 0.3 % (0.0-5.0); EOSINOPHILS % (AUTO) 6.4 % (0.0-8.0); HEMATOCRIT 23.7 % (36-48); LYMPHOCYTES % (AUTO) 10.9 % (21.0-51.0); MEAN CORPUSCULAR HEMOGLOBIN 28.1 pg (27.0-33.0); MEAN CORPUSCULAR HGB CONC 32.9 g/dL (32.0-36.0); MEAN CORPUSCULAR VOLUME 85.3 fL (79-99); MONOCYTES % (AUTO) 12.5 % (3.0-13.0); NEUTROPHILS % (AUTO) 68.1 % (40.0-77.0); PLATELET COUNT (AUTO) 98 K/uL (130-400); RED BLOOD CELL COUNT(AUTO) 2.78 MIL/uL (4.00-5.50); RED CELL DISTRIBUTION WIDTH 17.2 % (11.0-15.5); WHITE BLOOD COUNT (AUTO) 6.7 K/uL (4.8-10.8)
[2020-12-28 05:33] LABS: CREATININE 0.6 mg/dL (0.5-1.5); POTASSIUM 3.3 mmol/L (3.5-5.1)
[2020-12-28 05:35] VITALS: BP 96/50
[2020-12-28 08:00] VITALS: BP 91/63
[2020-12-28] MEDS: PANTOPRAZOLE 40 MG/VIAL IVP SCH (09:24)
[2020-12-28] MEDS: GABAPENTIN 300 MG CAPSULE PO SCH (09:24)
[2020-12-28] MEDS: DOCUSATE SODIUM 100 MG CAP PO SCH (09:24)
[2020-12-28] MEDS: NYSTATIN 30 GM CREAM.GM. TP SCH (09:25)
[2020-12-28] MEDS: ZINC OXIDE OINT 56.7 GM TP SCH (09:25)
[2020-12-28 12:25] VITALS: BP 97/63
[2021-02-21] MEDS ORDERED: MIRT-22 PO (14:07)
[2021-02-21] MEDS ORDERED: FURO20TA4 PO (14:07)
== END 2020-12-28 14:50 | disposition home or self-care (01) | DRG 378 ==
LOC: EDH 18:12 → EDHIP 20:35 → 3BH 12-25 00:09
PROVIDERS: ADMIT Internal Medicine; ATTEND Internal Medicine
PROC: 30233N1 Transfusion of Nonautologous Red Blood Cells into Peripheral Vein, Percutaneous Approach (ICD-10-PCS; principal; 2020-12-26)
PROC: 0DB68ZX Excision of Stomach, Via Natural or Artificial Opening Endoscopic, Diagnostic (ICD-10-PCS; 2020-12-26)
DX: K26.4 Chronic or unspecified duodenal ulcer with hemorrhage (principal); N39.0 Urinary tract infection, site not specified; I47.1 Supraventricular tachycardia; D64.9 Anemia, unspecified; G89.4 Chronic pain syndrome; I48.91 Unspecified atrial fibrillation; K29.70 Gastritis, unspecified, without bleeding; I12.9 Hypertensive chronic kidney disease with stage 1 through stage 4 chronic kidney disease, or unspecified chronic kidney disease; K21.9 Gastro-esophageal reflux disease without esophagitis; E11.22 Type 2 diabetes mellitus with diabetic chronic kidney disease; N18.9 Chronic kidney disease, unspecified; E78.5 Hyperlipidemia, unspecified; E11.51 Type 2 diabetes mellitus with diabetic peripheral angiopathy without gangrene; I25.10 Atherosclerotic heart disease of native coronary artery without angina pectoris; J44.9 Chronic obstructive pulmonary disease, unspecified; F32.9 Major depressive disorder, single episode, unspecified; R32 Unspecified urinary incontinence; K44.9 Diaphragmatic hernia without obstruction or gangrene; Z20.822 Contact with and (suspected) exposure to COVID-19; Z79.02 Long term (current) use of antithrombotics/antiplatelets; Z79.891 Long term (current) use of opiate analgesic; Z79.01 Long term (current) use of anticoagulants
CPT/HCPCS: 36415; 36430; 43239; 71045; 80048; 80053; 80076; 81001; 82270; 82550; 82948; 83690; 84484; 85014; 85018; 85025; 85027; 85610; 85730; 86850; 86900; 86901; 86923; 87040; 87088; 87426; 87804; 87880; 88305; 88342; 93005; 93306; 93356; 97039; A4606; C9113; G0378; J0696; J2704; J7030; P9016; U0003